=== PATIENT | male | born 1940 | race African-American/Black ===

== ENCOUNTER 2018-04-08 15:11 | Inpatient (IN) | payer OTHER ==
[2018-04-08 15:38] VITALS: BMI 20.7
--- NOTE | 2018-04-08 16:31 | HP ---
CIWA Score Nausea/Vomitin-No Nausea/No Vomiting Muscle Tremors: 3 Anxiety: 4-Mod. Anxious/Guarded Agitation: 2 Paroxysmal Sweats: 1-Minimal Palms Moist Orientation: 0-Oriented Tacttile Disturbances: 0-None Auditory Disturbances: 0-None Visual Disturbances: 2-Mild Sensitivity Headache: 0-None Present CIWA-Ar Total Score: 12 - Admission Criteria OASAS Guidelines: Admission for Medically Managed Detox: Requires at least one of the followin. CIWA greater than 12 2. Seizures within the past 24 hours 3. Delirium tremens within the past 24 hours 4. Hallucinations within the past 24 hours 5. Acute intervention needed for co occurring medical disorder 6. Acute intervention needed for co occurring psychiatric disorder 7. Severe withdrawal that cannot be handled at a lower level of care (continued vomiting, continued diarrhea, abnormal vital signs) requiring intravenous medication and/or fluids 8. Patient presents the following: CIWA greater than 12 Admission Criteria Met: Admission criteria met Admission ROS S - [facility] Chief Complaint: " Im sick and tire of it, I need detox" Allergies/Adverse Reactions: Allergies Allergy/AdvReac Type Severity Reaction Status Date / Time Penicillins Allergy Intermediate Hives Verified 04/08/18 16:25 History of Present Illness: 77 yo male with hx of alcohol, cocaine, and nicotine dependence is here seeking detox, self referred. Last detox [facility] two years ago. Reports recent hospitalization at [facility] two weeks ago for "abnormal heart rhythm." PMHX : HTN. Denies any psychiatric problems. Denies hx of seizures, blackouts. Denies suicidal / homicidal ideation. Reports seven months of sobriety about three years ago. Exam Limitations: No Limitations - Ebola screening Have you been sick,other than usual withdrawal symptoms: No - Review of Systems Constitutional: Loss of Appetite, Changes in sleep, Unintentional Wgt. Loss (15 lbs in past month) EENT: reports: Nose Congestion, Other (LOWER ELWHA left ear d/t wax build up) Respiratory: reports: No Symptoms reported Cardiac: reports: Lightheadedness, Palpitations GI: reports: Poor Appetite, Poor Fluid Intake : reports: No Symptoms Reported Musculoskeletal: reports: No Symptoms Reported Integumentary: reports: Dryness Neuro: reports: Weakness Endocrine: reports: Increased Thirst Hematology: reports: No Symptoms Reported Psychiatric: reports: Orientated x3, Anxious Other Systems: Reviewed and Negative Patient History - Patient Medical History Hx Anemia: No Hx Asthma: No Hx Chronic Obstructive Pulmonary Disease (COPD): No Hx Cancer: No Hx Cardiac Disorders: No Hx Congestive Heart Failure: No Hx Hypertension: Yes (on lisinopril) Hx Hypercholesterolemia: No Hx Pacemaker: No HX Cerebrovascular Accident: No Hx Seizures: No Hx Dementia: No Hx Diabetes: No Hx Gastrointestinal Disorders: No Hx Liver Disease: No Hx Genitourinary Disorders: No Hx Sexually Transmitted Disorders: No Hx Renal Disease (ESRD): No Hx Thyroid Disease: No Hx Human Immunodeficiency Virus (HIV): No Hx Hepatitis C: No Hx Depression: No Hx Suicide Attempt: No Hx Bipolar Disorder: No Hx Schizophrenia: No - Patient Surgical History Past Surgical History: No - PPD History Previous Implant?: No Documented Results: Negative w/o proof PPD to be Administered?: Yes - Smoking Cessation Smoking history: Current every day smoker Have you smoked in the past 12 months: Yes Aproximately how many cigarettes per day: 2 Hx Chewing Tobacco Use: No Initiated information on smoking cessation: Yes 'Breaking Loose' booklet given: 04/08/18 - Substance & Tx. History Hx Alcohol Use: Yes Hx Substance Use: Yes Substance Use Type: Alcohol, Cocaine Hx Substance Use Treatment: Yes (Detox [facility] 2 year ago ) - Substances Abused alcohol Route: Oral Frequency: 3-6 times per week Amount used: 1 pint Age of first use: 20 Date of Last Use: 04/08/18 Cocaine Route: Smoking Frequency: 1-2 times per week Amount used: 1 gram Age of first use: 20 Date of Last Use: 04/07/18 Family Disease History - Family Disease History Family Disease History: CA: Sister Admission Physical Exam BHS - Vital Signs Vital Signs: Vital Signs - 24 hr 04/08/18 15:36 Temperature 96.9 F L Pulse Rate 68 Respiratory 18 Rate Blood Pressure 148/93 - Physical General Appearance: Yes: Disheveled, Thin, Sweating, Anxious HEENTM: Yes: EOMI, Normal ENT Inspection, Normocephalic, Normal Voice, JONN, Pharynx Normal, Tm's normal, Nasal Congestion, Other (LOWER ELWHA (l), dry mucous membranes, poor dentition) Respiratory: Yes: Chest Non-Tender, Lungs Clear, Normal Breath Sounds, No Respiratory Distress, No Accessory Muscle Use Neck: Yes: Within Normal Limits Breast: Yes: Breast Exam Deferred Cardiology: Yes: Regular Rhythm, Regular Rate Abdominal: Yes: Normal Bowel Sounds, Non Tender, Flat, Soft Genitourinary: Yes: Within Normal Limits Back: Yes: Normal Inspection Musculoskeletal: Yes: full range of Motion, Gait Steady, Pelvis Stable Extremities: Yes: Normal Capillary Refill, Normal Inspection, Normal Range of Motion Neurological: Yes: polysomnograph tech II-XII NML intact, Fully Oriented, Alert, Motor Strength 5/5, Depressed Affect Integumentary: Yes: Normal Color, Warm, Diaphoresis Lymphatic: Yes: Within Normal Limits - Diagnostic (1) Alcohol dependence with withdrawal Current Visit: Yes Status: Acute (2) Hypertension Current Visit: Yes Status: Chronic Qualifiers: Hypertension type: essential hypertension Qualified Code(s): I10 - Essential (primary) hypertension (3) At risk for dehydration due to poor fluid intake Current Visit: Yes Status: Acute (4) Cocaine dependence Current Visit: Yes Status: Acute Qualifiers: Substance use status: uncomplicated Qualified Code(s): F14.20 - Cocaine dependence, uncomplicated Cleared for Admission [facility] - Detox or Rehab [facility] Level of Care: Medically Managed Detox Regimen/Protocol: Librium [facility] Breath Alcohol Content Breath Alcohol Content: 0.015 Urine Drug Screen - Results Drug Screen Negative: No Urine Drug Screen Results: ANYI-Cocaine Inpatient Rehab Admission - Rehab Decision to Admit Inpatient rehab admission?: No
[2018-04-08] MEDS ORDERED: MENTHOL/PHENOL 1 EACH UD MM PRN (16:36)
[2018-04-08] MEDS ORDERED: ACETAMINOPHEN 325 MG TABLET (FP) PO PRN (16:36)
[2018-04-08] MEDS ORDERED: P-EPHED 60MG/TRIPROLIDI 2.5MG TABLET PO PRN (16:36)
[2018-04-08] MEDS ORDERED: MAGNESIUM HYDROX 2400MG/30ML ORAL SUSPENSION 30 ML CUP PO PRN (16:36)
[2018-04-08] MEDS ORDERED: MAG HYDROX/AL HYDROX/SIMETH 30 ML UNIT-DOSE CUP PO PRN (16:36)
[2018-04-08] MEDS ORDERED: chlordiazePOXIDE HCL 25 MG CAPSULE PO PRN (16:36)
[2018-04-08] MEDS ORDERED: NICOTINE POLACRILEX 2 MG GUM BC PRN (16:36)
[2018-04-08] MEDS ORDERED: guaiFENesin/D-METHORPHAN HB 10 ML UNIT-DOSE CUPS PO PRN (16:36)
[2018-04-08] MEDS ORDERED: LOPERAMIDE HCL 2 MG CAPSULE PO PRN (16:36)
[2018-04-08] MEDS ORDERED: MAGNESIUM CITRATE 300 ML BOTTLE PO PRN (16:36)
[2018-04-08] MEDS ORDERED: IBUPROFEN 400 MG TABLET (FP) PO PRN (16:36)
[2018-04-08] MEDS ORDERED: MELATONIN 5 MG TABLETS PO PRN (22:00)
[2018-04-08] MEDS: THIAMINE HCL 100 MG TABLET (FP) PO SCH (22:32)
[2018-04-08] MEDS: chlordiazePOXIDE HCL 25 MG CAPSULE PO SCH (22:32)
[2018-04-08 23:30] LABS: URINE APPEARANCE CLEAR; URINE BILIRUBIN NEGATIVE (<2.0 mg/dL); URINE COLOR LTYELLOW; URINE GLUCOSE (UA) NEGATIVE (NEGATIVE); URINE KETONE NEGATIVE (NEGATIVE); URINE LEUK ESTERASE NEGATIVE (NEGATIVE); URINE NITRITE NEGATIVE (NEGATIVE); URINE PROTEIN NEGATIVE (NEGATIVE); URINE UROBILINOGEN NEGATIVE mg/dL (0.2-1.0)
[2018-04-09] MEDS: chlordiazePOXIDE HCL 25 MG CAPSULE PO SCH ×4 (06:21→22:47)
--- NOTE | 2018-04-09 08:08 | EKG ---
Test Reason : Blood Pressure : / mmHG Vent. Rate : 047 BPM Atrial Rate : 047 BPM P-R Int : 162 ms QRS Dur : 090 ms QT Int : 486 ms P-R-T Axes : 042 066 072 degrees QTc Int : 430 ms SINUS BRADYCARDIA MINIMAL VOLTAGE CRITERIA FOR LVH, MAY BE NORMAL VARIANT BORDERLINE ECG NO PREVIOUS ECGS AVAILABLE Confirmed by MD LOREN, MILAGROS ([id number]) on 04/09/2018 8:08:09 AM Referred By: Libia Hunter Confirmed By:MILAGROS PIMENTEL MD
[2018-04-09] MEDS: NICOTINE 14 MG/24 HOURS TOPICAL PATCH TD SCH (09:50)
[2018-04-09] MEDS: PRENATAL VITAMINS W/ FOLIC ACID TABLET (FP) PO SCH (09:50)
[2018-04-09] MEDS: LISINOPRIL 10 MG TABLET (FP) PO SCH (09:51)
--- NOTE | 2018-04-09 10:00 | PN ---
S CIWA - CIWA Score Nausea/Vomitin-Mild Nausea/No Vomiting Muscle Tremors: 4-Moderate,w/Arms Extend Anxiety: 3 Agitation: 2 Paroxysmal Sweats: 1-Minimal Palms Moist Orientation: 1-Uncertain about Date Tacttile Disturbances: 0-None Auditory Disturbances: 0-None Visual Disturbances: 0-None Headache: 1-Very Mild CIWA-Ar Total Score: 13 BHS Progress Note (SOAP) Subjective: tremor sweating low energy headaches long history of hypertension treated with lisinopril 10 mg po daily Objective: 04/09/18 09:59 Vital Signs Temperature 96.4 F L 04/09/18 09:25 Pulse Rate 81 04/09/18 09:25 Respiratory Rate 18 04/09/18 09:25 Blood Pressure 124/81 04/09/18 09:25 O2 Sat by Pulse Oximetry (%) Laboratory Last Values Urine Color Ltyellow 04/08/18 22:20 Urine Appearance Clear 04/08/18 22:20 Urine pH 7.0 (5.0-8.0) 04/08/18 22:20 Ur Specific [place] 1.011 (1.010-1.035) 04/08/18 22:20 Urine Protein Negative (NEGATIVE) 04/08/18 22:20 Urine Glucose (UA) Negative (NEGATIVE) 04/08/18 22:20 Urine Ketones Negative (NEGATIVE) 04/08/18 22:20 Urine Blood Negative (NEGATIVE) 04/08/18 22:20 Urine Nitrite Negative (NEGATIVE) 04/08/18 22:20 Urine Bilirubin Negative (<2.0 mg/dL) 04/08/18 22:20 Urine Urobilinogen Negative mg/dL (0.2-1.0) 04/08/18 22:20 Ur Leukocyte Esterase Negative (NEGATIVE) 04/08/18 22:20 lab noted Assessment: 04/09/18 09:59 withdrawal sx hypertension Plan: continue detox
[2018-04-09] MEDS: ALBUTEROL SO4 8 GM HFA INHALER IH PRN (11:24)
[2018-04-09] MEDS: BUDESONIDE/FORMETEROL FUMARATE 80/4.5 mcg INHALER IH SCH ×2 (11:24→23:14)
[2018-04-09 11:26] LABS: ALBUMIN 3.1 g/dl (3.4-5.0); ALK PHOS 66 U/L (45-117); ANION GAP 5 MMOL/L (8-16); BLOOD UREA NITROGEN 12 mg/dL (7-18); CALCIUM 7.8 mg/dL (8.5-10.1); CHLORIDE 107 mmol/L (98-107); CO2 31 mmol/L (21-32); CREATININE 1.4 mg/dL (0.55-1.3); GLUCOSE,RANDOM 76 mg/dL (74-106); POTASSIUM 4.2 mmol/L (3.5-5.1); SGOT/AST 16 U/L (15-37); SGPT/ALT 15 U/L (13-61); SODIUM 143 mmol/L (136-145); TOT PROT 6.2 g/dl (6.4-8.2)
[2018-04-09 11:57] LABS: HEMATOCRIT 38.4 % (35.4-49); MCH 32.3 pg (25.7-33.7); MCHC 33.9 g/dl (32.0-35.9); MEAN CELL VOLUME 95.3 fl (80-96); PLATELET COUNT 198 K/MM3 (134-434); RBC 4.02 M/mm3 (4.00-5.60); WHITE BLOOD COUNT 3.6 K/mm3 (4.0-10.0)
--- NOTE | 2018-04-09 12:32 | PN ---
[facility] Progress Note Note: Vital Signs Temperature 96.4 F L 04/09/18 09:25 Pulse Rate 81 04/09/18 09:25 Respiratory Rate 18 04/09/18 09:25 Blood Pressure 124/81 04/09/18 09:25 O2 Sat by Pulse Oximetry (%) Laboratory Last Values WBC 3.6 K/mm3 (4.0-10.0) L 04/09/18 08:00 RBC 4.02 M/mm3 (4.00-5.60) 04/09/18 08:00 Hgb 13.0 GM/dL (11.7-16.9) 04/09/18 08:00 Hct 38.4 % (35.4-49) 04/09/18 08:00 MCV 95.3 fl (80-96) 04/09/18 08:00 MCH 32.3 pg (25.7-33.7) 04/09/18 08:00 MCHC 33.9 g/dl (32.0-35.9) 04/09/18 08:00 RDW 13.0 % (11.9-15.9) 04/09/18 08:00 Plt Count 198 K/MM3 (134-434) 04/09/18 08:00 MPV 8.0 fl (7.5-11.1) 04/09/18 08:00 Sodium 143 mmol/L (136-145) 04/09/18 08:00 Potassium 4.2 mmol/L (3.5-5.1) 04/09/18 08:00 Chloride 107 mmol/L (98-107) 04/09/18 08:00 Carbon Dioxide 31 mmol/L (21-32) 04/09/18 08:00 Anion Gap 5 MMOL/L (8-16) L 04/09/18 08:00 BUN 12 mg/dL (7-18) 04/09/18 08:00 Creatinine 1.4 mg/dL (0.55-1.3) H 04/09/18 08:00 Creat Clearance w eGFR 49.27 (>60) 04/09/18 08:00 Random Glucose 76 mg/dL (74-106) 04/09/18 08:00 Calcium 7.8 mg/dL (8.5-10.1) L 04/09/18 08:00 Total Bilirubin 1.0 mg/dL (0.2-1) 04/09/18 08:00 AST 16 U/L (15-37) 04/09/18 08:00 ALT 15 U/L (13-61) 04/09/18 08:00 Alkaline Phosphatase 66 U/L (45-117) 04/09/18 08:00 Total Protein 6.2 g/dl (6.4-8.2) L 04/09/18 08:00 Albumin 3.1 g/dl (3.4-5.0) L 04/09/18 08:00 Urine Color Ltyellow 04/08/18 22:20 Urine Appearance Clear 04/08/18 22:20 Urine pH 7.0 (5.0-8.0) 04/08/18 22:20 Ur Specific [place] 1.011 (1.010-1.035) 04/08/18 22:20 Urine Protein Negative (NEGATIVE) 04/08/18 22:20 Urine Glucose (UA) Negative (NEGATIVE) 04/08/18 22:20 Urine Ketones Negative (NEGATIVE) 04/08/18 22:20 Urine Blood Negative (NEGATIVE) 04/08/18 22:20 Urine Nitrite Negative (NEGATIVE) 04/08/18 22:20 Urine Bilirubin Negative (<2.0 mg/dL) 04/08/18 22:20 Urine Urobilinogen Negative mg/dL (0.2-1.0) 04/08/18 22:20 Ur Leukocyte Esterase Negative (NEGATIVE) 04/08/18 22:20 Patient was evaluated by drapery cutter , rec: ensure po 120ml BID. order place as per drapery cutter recommendations increase po fluids continue to monitor
[2018-04-09] MEDS: THIAMINE HCL 100 MG TABLET (FP) PO SCH (22:47)
[2018-04-10] MEDS: chlordiazePOXIDE HCL 25 MG CAPSULE PO SCH ×3 (07:07→17:30)
[2018-04-10] MEDS: ALBUTEROL SO4 8 GM HFA INHALER IH PRN (07:11)
[2018-04-10] MEDS: LISINOPRIL 10 MG TABLET (FP) PO SCH (10:33)
[2018-04-10] MEDS: PRENATAL VITAMINS W/ FOLIC ACID TABLET (FP) PO SCH (10:33)
[2018-04-10] MEDS: BUDESONIDE/FORMETEROL FUMARATE 80/4.5 mcg INHALER IH SCH ×2 (10:33→22:38)
[2018-04-10] MEDS: NICOTINE 14 MG/24 HOURS TOPICAL PATCH TD SCH (10:33)
--- NOTE | 2018-04-10 15:00 | PN ---
[facility] CIWA - CIWA Score Nausea/Vomitin-No Nausea/No Vomiting Muscle Tremors: 1-None Visible, but [place] Anxiety: 0-No Anxiety, at Ease Agitation: 0-Normal Activity Paroxysmal Sweats: No Perspiration Orientation: 0-Oriented Tacttile Disturbances: 0-None Auditory Disturbances: 0-None Visual Disturbances: 0-None Headache: 0-None Present CIWA-Ar Total Score: 1 BHS Progress Note (SOAP) Subjective: pt states doing well- would like to go to rehab. O: Vital Signs - 24 hr 04/09/18 04/09/18 04/10/18 17:41 22:05 00:30 Temperature 96.3 F L 96.6 F L Pulse Rate 69 87 Respiratory 18 17 18 Rate Blood Pressure 138/83 118/78 04/10/18 04/10/18 04/10/18 03:30 06:23 09:44 Temperature 96.3 F L 97.7 F Pulse Rate 62 56 L Respiratory 18 18 20 Rate Blood Pressure 112/78 110/60 04/10/18 13:33 Temperature 97.6 F Pulse Rate 58 L Respiratory 18 Rate Blood Pressure 118/70 Laboratory Tests 04/08/18 04/09/18 04/09/18 22:20 08:00 08:00 WBC 3.6 L RBC 4.02 Hgb 13.0 Hct 38.4 MCV 95.3 MCH 32.3 MCHC 33.9 RDW 13.0 Plt Count 198 MPV 8.0 Sodium 143 Potassium 4.2 Chloride 107 Carbon Dioxide 31 Anion Gap 5 L BUN 12 Creatinine 1.4 H Creat Clearance w eGFR 49.27 Random Glucose 76 Calcium 7.8 L Total Bilirubin 1.0 AST 16 ALT 15 Alkaline Phosphatase 66 Total Protein 6.2 L Albumin 3.1 L Urine Color Ltyellow Urine Appearance Clear Urine pH 7.0 Ur Specific [place] 1.011 Urine Protein Negative Urine Glucose (UA) Negative Urine Ketones Negative Urine Blood Negative Urine Nitrite Negative Urine Bilirubin Negative Urine Urobilinogen Negative Ur Leukocyte Esterase Negative RPR Titer 04/09/18 08:00 WBC RBC Hgb Hct MCV MCH MCHC RDW Plt Count MPV Sodium Potassium Chloride Carbon Dioxide Anion Gap BUN Creatinine Creat Clearance w eGFR Random Glucose Calcium Total Bilirubin AST ALT Alkaline Phosphatase Total Protein Albumin Urine Color Urine Appearance Urine pH Ur Specific [place] Urine Protein Urine Glucose (UA) Urine Ketones Urine Blood Urine Nitrite Urine Bilirubin Urine Urobilinogen Ur Leukocyte Esterase RPR Titer Nonreactive a/p: continue alcohol detox- pt doing well CRI
--- NOTE | 2018-04-10 16:28 | PN ---
[facility] Progress Note Note: Vital Signs Temperature 97.6 F 04/10/18 13:33 Pulse Rate 58 L 04/10/18 13:33 Respiratory Rate 18 04/10/18 13:33 Blood Pressure 118/70 04/10/18 13:33 O2 Sat by Pulse Oximetry (%) s/p unwitnessed fall Fall procol #1 Patient will be evaluated by Dr. Franco
--- NOTE | 2018-04-10 17:50 | PN ---
[facility] Progress Note Note: Pt states that while getting out of bed- he fell to the floor near his bed- did not lose consciousness, did not hit head on floor. Pt states he has R buttock pain 2/10 in intensity. PE Vital Signs - 24 hr 04/09/18 04/10/18 04/10/18 22:05 00:30 03:30 Temperature 96.6 F L Pulse Rate 87 Respiratory 17 18 18 Rate Blood Pressure 118/78 04/10/18 04/10/18 04/10/18 06:23 09:44 13:33 Temperature 96.3 F L 97.7 F 97.6 F Pulse Rate 62 56 L 58 L Respiratory 18 20 18 Rate Blood Pressure 112/78 110/60 118/70 04/10/18 17:21 Temperature 97.5 F L Pulse Rate 53 L Respiratory 18 Rate Blood Pressure 134/77 lungs clear, heart RRR, buttock area- no bruising, no swelling, minimal pain to palpation a/p: Fall- unwitnessed, pt refused ER f/u- will sign refusal will decrease dose of librium
[2018-04-10] MEDS ORDERED: chlordiazePOXIDE 5 MG CAPSULE PO PRN (17:59)
[2018-04-10] MEDS: chlordiazePOXIDE HCL 10 MG CAPSULE PO SCH (22:38)
[2018-04-10] MEDS: THIAMINE HCL 100 MG TABLET (FP) PO SCH (22:38)
[2018-04-10] MEDS ORDERED: chlordiazePOXIDE 5 MG CAPSULE PO SCH (23:00)
[2018-04-11] MEDS: ALBUTEROL SO4 8 GM HFA INHALER IH PRN (03:03)
[2018-04-11] MEDS: chlordiazePOXIDE HCL 10 MG CAPSULE PO SCH ×3 (08:12→17:50)
--- NOTE | 2018-04-11 10:17 | PN ---
[facility] CIWA - CIWA Score Nausea/Vomitin-No Nausea/No Vomiting Muscle Tremors: None Anxiety: 1-Mildly Anxious Agitation: 0-Normal Activity Paroxysmal Sweats: No Perspiration Orientation: 0-Oriented Tacttile Disturbances: 0-None Auditory Disturbances: 0-None Visual Disturbances: 0-None Headache: 0-None Present CIWA-Ar Total Score: 1 S Progress Note (SOAP) Subjective: feeling better mild tremor less sweating social with peers in day room Objective: 04/11/18 10:17 Vital Signs Temperature 97.4 F L 04/11/18 09:23 Pulse Rate 63 04/11/18 09:23 Respiratory Rate 18 04/11/18 09:23 Blood Pressure 148/85 04/11/18 09:23 O2 Sat by Pulse Oximetry (%) Laboratory Last Values WBC 3.6 K/mm3 (4.0-10.0) L 04/09/18 08:00 RBC 4.02 M/mm3 (4.00-5.60) 04/09/18 08:00 Hgb 13.0 GM/dL (11.7-16.9) 04/09/18 08:00 Hct 38.4 % (35.4-49) 04/09/18 08:00 MCV 95.3 fl (80-96) 04/09/18 08:00 MCH 32.3 pg (25.7-33.7) 04/09/18 08:00 MCHC 33.9 g/dl (32.0-35.9) 04/09/18 08:00 RDW 13.0 % (11.9-15.9) 04/09/18 08:00 Plt Count 198 K/MM3 (134-434) 04/09/18 08:00 MPV 8.0 fl (7.5-11.1) 04/09/18 08:00 Sodium 143 mmol/L (136-145) 04/09/18 08:00 Potassium 4.2 mmol/L (3.5-5.1) 04/09/18 08:00 Chloride 107 mmol/L (98-107) 04/09/18 08:00 Carbon Dioxide 31 mmol/L (21-32) 04/09/18 08:00 Anion Gap 5 MMOL/L (8-16) L 04/09/18 08:00 BUN 12 mg/dL (7-18) 04/09/18 08:00 Creatinine 1.4 mg/dL (0.55-1.3) H 04/09/18 08:00 Creat Clearance w eGFR 49.27 (>60) 04/09/18 08:00 Random Glucose 76 mg/dL (74-106) 04/09/18 08:00 Calcium 7.8 mg/dL (8.5-10.1) L 04/09/18 08:00 Total Bilirubin 1.0 mg/dL (0.2-1) 04/09/18 08:00 AST 16 U/L (15-37) 04/09/18 08:00 ALT 15 U/L (13-61) 04/09/18 08:00 Alkaline Phosphatase 66 U/L (45-117) 04/09/18 08:00 Total Protein 6.2 g/dl (6.4-8.2) L 04/09/18 08:00 Albumin 3.1 g/dl (3.4-5.0) L 04/09/18 08:00 Urine Color Ltyellow 04/08/18 22:20 Urine Appearance Clear 04/08/18 22:20 Urine pH 7.0 (5.0-8.0) 04/08/18 22:20 Ur Specific [place] 1.011 (1.010-1.035) 04/08/18 22:20 Urine Protein Negative (NEGATIVE) 04/08/18 22:20 Urine Glucose (UA) Negative (NEGATIVE) 04/08/18 22:20 Urine Ketones Negative (NEGATIVE) 04/08/18 22:20 Urine Blood Negative (NEGATIVE) 04/08/18 22:20 Urine Nitrite Negative (NEGATIVE) 04/08/18 22:20 Urine Bilirubin Negative (<2.0 mg/dL) 04/08/18 22:20 Urine Urobilinogen Negative mg/dL (0.2-1.0) 04/08/18 22:20 Ur Leukocyte Esterase Negative (NEGATIVE) 04/08/18 22:20 RPR Titer Nonreactive (NONREACTIVE) 04/09/18 08:00 discuss adherence with antihypertensant follow up with primary care provider or [facility] lab noted 04/11/18 10:19 Assessment: 04/11/18 10:19 mild withdrawal sx Plan: continue detox
[2018-04-11] MEDS: BUDESONIDE/FORMETEROL FUMARATE 80/4.5 mcg INHALER IH SCH ×2 (10:26→22:13)
[2018-04-11] MEDS: PRENATAL VITAMINS W/ FOLIC ACID TABLET (FP) PO SCH (10:26)
[2018-04-11] MEDS: LISINOPRIL 10 MG TABLET (FP) PO SCH (10:27)
[2018-04-11] MEDS: NICOTINE 14 MG/24 HOURS TOPICAL PATCH TD SCH (10:27)
[2018-04-11] MEDS ORDERED: ALBUTEROL SO4 2.5/IPRATROPIUM 0.5 INH SOL 3 ML VIAL.NEB. NEB ONE (13:41)
[2018-04-11] MEDS: ALBUTEROL SO4 0.083% IH SOL 2.5 MG/3 ML VIAL.NEB. NEB PRN ×2 (14:24→21:57)
[2018-04-11] MEDS: THIAMINE HCL 100 MG TABLET (FP) PO SCH (22:12)
[2018-04-11] MEDS ORDERED: chlordiazePOXIDE HCL 10 MG CAPSULE PO SCH (23:00)
[2018-04-11] MEDS: chlordiazePOXIDE 5 MG CAPSULE PO SCH (23:30)
[2018-04-12] MEDS: chlordiazePOXIDE 5 MG CAPSULE PO SCH ×2 (05:07→12:02)
[2018-04-12 06:10] VITALS: BP 127/74; PULSE 51; TEMP 97.4
[2018-04-12] MEDS: ALBUTEROL SO4 0.083% IH SOL 2.5 MG/3 ML VIAL.NEB. NEB PRN (07:10)
--- NOTE | 2018-04-12 09:08 | DS ---
[facility] Detox Discharge Summary Admission Date: 04/08/18 Discharge Date: 04/12/18 - History Present History: Alcohol Dependence, Cocaine Dependence - Physical Exam Results Vital Signs: Vital Signs Temperature 97.4 F L 04/12/18 06:09 Pulse Rate 51 L 04/12/18 06:09 Respiratory Rate 18 04/12/18 06:09 Blood Pressure 127/74 04/12/18 06:09 O2 Sat by Pulse Oximetry (%) - Treatment Hospital Course: Detox Protocol Followed, Detoxed Safely, Responded well, Discharged Condition Good - Medication Discharge Medications: Ambulatory Orders Albuterol Sulfate Inhaler - [Ventolin HFA Inhaler -] 2 inh PO Q4H PRN #1 inhaler 04/11/18 Budesonide/Formeterol Fumarate [SYMBICORT 80/4.5mcg -] 2 puff IH BID #1 inhaler 04/11/18 Lisinopril 10 mg PO DAILY #14 tablet 04/11/18 Nifedipine ER [Procardia XL -] 30 mg PO DAILY #14 tab.er.[id number] 04/11/18 - Diagnosis (1) Alcohol dependence with withdrawal Current Visit: Yes Status: Chronic (2) COPD (chronic obstructive pulmonary disease) Current Visit: Yes Status: Chronic (3) Cocaine dependence Current Visit: Yes Status: Chronic Qualifiers: Substance use status: uncomplicated Qualified Code(s): F14.20 - Cocaine dependence, uncomplicated (4) Hypertension Current Visit: Yes Status: Chronic Qualifiers: Hypertension type: essential hypertension Qualified Code(s): I10 - Essential (primary) hypertension - AMA Did Patient Leave Against Medical Advice: No
[2018-04-12] MEDS: PRENATAL VITAMINS W/ FOLIC ACID TABLET (FP) PO SCH (12:02)
[2018-04-12] MEDS: BUDESONIDE/FORMETEROL FUMARATE 80/4.5 mcg INHALER IH SCH (12:02)
[2018-04-12] MEDS: NICOTINE 14 MG/24 HOURS TOPICAL PATCH TD SCH (12:02)
[2018-04-12] MEDS: LISINOPRIL 10 MG TABLET (FP) PO SCH (12:02)
== END 2018-04-12 11:14 | disposition home or self-care (01) | DRG 897 ==
LOC: YASAS 15:11 → Y3N 18:06
PROVIDERS: ADMIT Surgery; ATTEND Surgery
PROC: HZ2ZZZZ Detoxification Services for Substance Abuse Treatment (ICD-10-PCS; principal; 2018-04-08)
DX: F10.230 Alcohol dependence with withdrawal, uncomplicated (principal); F14.20 Cocaine dependence, uncomplicated; I10 Essential (primary) hypertension; J44.9 Chronic obstructive pulmonary disease, unspecified; Z91.89 Other specified personal risk factors, not elsewhere classified; Z88.0 Allergy status to penicillin
CPT/HCPCS: 36415; 80053; 81003; 85027; 86593; 93005; 93010; 94640